=== PATIENT | male | born 1985 | race African-American/Black ===

== ENCOUNTER 2019-05-05 14:41 | Emergency (ER) | payer OTHER, MEDICAID ==
[~2019-05-05] VITALS: Ht 175.3 cm; Wt 113.0 kg
[2019-05-05 16:03] LABS: BASOPHILS % 0.3 % (0.0-2.0); CHLORIDE 105 mEq/L (98-107); EOSINOPHILS % 0.1 % (0.0-5.0); HEMATOCRIT. 45.2 % (42.0-52.0); HEMOGLOBIN. 15.4 g/dL (14.0-18.0); LYMPHOCYTES % 16.1 % (20.0-50.0); MEAN CORPUSCULAR HEMOGLOBIN 29.2 pg (28.0-32.0); MEAN CORPUSCULAR VOLUME 86.1 fL (80.0-94.0); MEAN PLATELET VOLUME 9.8 fl (7.4-10.4); NEUTROPHILS % 76.5 % (40.0-76.0); PLATELET 199 x1000/uL (130-400); RED BLOOD CELL COUNT 5.26 mill/uL (4.7-6.1); RED CELL DISTRIBUTION WIDTH 13.8 % (11.6-14.6)
[2019-05-05] MEDS ORDERED: POTASSIUM CHLORIDE 20MEQ TABLET SR PO ONE (19:15)
[2019-05-05 20:13] VITALS: BP 118/60
== END 2019-05-05 20:50 | disposition short-term general hospital (02) ==
LOC: ER 14:41 → EDBEDREQ 15:46 → CANBEDREQ 19:15 → ER 20:50
DX: R55 Syncope and collapse (principal); E87.6 Hypokalemia; Z91.81 History of falling
CPT/HCPCS: 36415; 71045; 83880; 84484; 93005; 99285